=== PATIENT | female | born 1955 | race Caucasian/White ===

== ENCOUNTER 2021-03-22 10:55 | Observation (INO) | payer MEDICARE, OTHER ==
[~2021-03-22] VITALS: Ht 154.9 cm; Wt 78.0 kg
[2021-03-22 13:46] LABS: HEMOGLOBIN 14.5 gm/dl (12.3-15.3); RED BLOOD COUNT 4.65 M/UL (4.00-5.10); WHITE BLOOD COUNT 8.3 K/UL (4.5-11.0)
[2021-03-22 14:16] LABS: BUN/CREATININE RATIO 14 (0-10)
[2021-03-22] MEDS ORDERED: GABAPENTIN400 MG PO (15:18)
[2021-03-22] MEDS ORDERED: FLONASE ALLER15.8 ML (15:18)
[2021-03-22] MEDS ORDERED: COREG 3.125M3.125 MG PO (15:18)
[2021-03-22] MEDS ORDERED: ALLERGY RELIEF5 MG PO (15:19)
[2021-03-22] MEDS ORDERED: MYCOSTATIN100000 UTS PO (15:19)
[2021-03-22] MEDS ORDERED: LOSARTAN POTASS50 MG PO (15:20)
[2021-03-22] MEDS ORDERED: PROTONIX40 MG PO (15:20)
[2021-03-22] MEDS ORDERED: MAGNESIUM400 M2 PO (15:21)
[2021-03-22] MEDS ORDERED: LACTINEX TABLET1 EA PO (15:21)
[2021-03-22] MEDS ORDERED: CRESTOR20 MG PO (15:21)
[2021-03-22] MEDS ORDERED: CBD OIL TOP (15:22)
[2021-03-23 04:34] LABS: HEMOGLOBIN 13.6 gm/dl (12.3-15.3); RED BLOOD COUNT 4.38 M/UL (4.00-5.10); WHITE BLOOD COUNT 8.5 K/UL (4.5-11.0)
[2021-03-23 04:48] LABS: BUN/CREATININE RATIO 19 (0-10)
[2021-03-23] MEDS ORDERED: GABAPENTIN400 MG PO (11:51)
[2021-03-23] MEDS ORDERED: ROPINIROLE HCL0.5 MG PO (11:51)
[2021-03-23] MEDS ORDERED: ASPIRIN EC81 MG PO (12:01)
== END 2021-03-23 13:20 | disposition home or self-care (01) ==
LOC: ER1 10:55 → CDU 14:50 → MED SURG 4 16:22
PROVIDERS: Family Medicine; Physician Assistant; ADMIT Internal Medicine Infectious Disease
DX: G40.409 Other generalized epilepsy and epileptic syndromes, not intractable, without status epilepticus (principal); F80.81 Childhood onset fluency disorder; F41.9 Anxiety disorder, unspecified; G25.81 Restless legs syndrome; I16.0 Hypertensive urgency; I25.10 Atherosclerotic heart disease of native coronary artery without angina pectoris; I10 Essential (primary) hypertension; E78.5 Hyperlipidemia, unspecified; E11.9 Type 2 diabetes mellitus without complications; F17.210 Nicotine dependence, cigarettes, uncomplicated; Z20.822 Contact with and (suspected) exposure to COVID-19; Z95.1 Presence of aortocoronary bypass graft; Z88.8 Allergy status to other drugs, medicaments and biological substances; Z79.51 Long term (current) use of inhaled steroids; Z79.899 Other long term (current) drug therapy
CPT/HCPCS: 36415; 70450; 70551; 71045; 80048; 80053; 82550; 82553; 82962; 83874; 84484; 85025; 93005; 93880; 99285; G0378; U0002

== ENCOUNTER 2021-04-15 00:36 | Emergency (ER) | payer MEDICARE, OTHER ==
[~2021-04-15 00:36] MED LIST: ALLERGY RELIEF5 MG PO; ASPIRIN EC81 MG PO; CBD OIL TOP; COREG 3.125M3.125 MG PO; CRESTOR20 MG PO; FLONASE ALLER15.8 ML; GABAPENTIN400 MG PO; LACTINEX TABLET1 EA PO; LOSARTAN POTASS50 MG PO; MAGNESIUM400 M2 PO; MYCOSTATIN100000 UTS PO; PROTONIX40 MG PO; ROPINIROLE HCL0.5 MG PO
[2021-04-15 01:12] LABS: RED BLOOD COUNT 4.48 M/UL (4.00-5.10); WHITE BLOOD COUNT 10.3 K/UL (4.5-11.0)
[2021-04-15 01:37] LABS: BUN/CREATININE RATIO 15 (0-10)
[2021-04-15] MEDS ORDERED: CLONIDINE HCL0.1 M1 PO (03:49)
== END 2021-04-15 04:04 | disposition home or self-care (01) ==
LOC: ER1 00:36
PROVIDERS: Physician Assistant
DX: I10 Essential (primary) hypertension (principal); R51.9 Headache, unspecified; I25.10 Atherosclerotic heart disease of native coronary artery without angina pectoris; E11.9 Type 2 diabetes mellitus without complications; F17.210 Nicotine dependence, cigarettes, uncomplicated; Z90.89 Acquired absence of other organs
CPT/HCPCS: 71045; 80053; 82550; 82553; 83874; 83880; 84484; 85025; 93005; 96374; 99284; J2765; J7120

== ENCOUNTER → 2021-05-03 | Outpatient (CLI) | payer MEDICARE, OTHER ==
[~2021-05-03] MED LIST changes: +CLONIDINE HCL0.1 M1 PO
== END ==
LOC: EXRD 07:57
DX: I10 Essential (primary) hypertension (principal)
CPT/HCPCS: 93975

== ENCOUNTER → 2021-05-11 | Outpatient (CLI) | payer MEDICARE, OTHER | LOC: KOH-I 05-10 14:00 | DX: F17.210 Nicotine dependence, cigarettes, uncomplicated (principal); R91.1 Solitary pulmonary nodule | CPT/HCPCS: 71271 ==

== ENCOUNTER → 2021-05-26 | Outpatient (CLI) | payer MEDICARE, OTHER | LOC: HEART 5 09:29 | DX: R91.1 Solitary pulmonary nodule (principal) | CPT/HCPCS: 94060; 94729 ==

== ENCOUNTER → 2021-11-15 | Outpatient (CLI) | payer MEDICARE, OTHER | LOC: MRI 12:48 | DX: C34.11 Malignant neoplasm of upper lobe, right bronchus or lung (principal); D72.829 Elevated white blood cell count, unspecified | CPT/HCPCS: 70553; A9577 ==

== ENCOUNTER → 2021-12-29 | Outpatient (CLI) | payer MEDICARE, OTHER | LOC: KOH-I 11:45 | DX: J18.9 Pneumonia, unspecified organism (principal) | CPT/HCPCS: 71046 ==